=== PATIENT | male | born 1950 | race Caucasian/White ===

== ENCOUNTER 2022-10-26 22:35 | Inpatient (IN) | payer MEDICARE, OTHER, SELFPAY ==
[2022-10-27 11:05] VITALS: BP 167/83; PULSE 81; RESP 17; TEMP 36.9; O2SAT 94
--- NOTE | 2022-10-27 12:05 | W.PM.HP.N ---
Date of service: 10/27/22 Time of Service: 12:05 Assessment and Plan Assessment and plan (1) Gastrointestinal bleeding: Status: Chronic Assessment and plan: We will have a surgical consult for endoscopic procedure evaluation Dark stools but no further hematochezia: Will initiate protonix 40 mg IVP BID Trend H&H shayna AM CBC Monitor for further GIB. (2) Abnormal CT of the abdomen: Status: Acute Assessment and plan: As above (3) DVT prophylaxis: Status: Acute Assessment and plan: Patient is not a candidate for pharmacological DVT prophylaxis at this time We will start SCD's Consider TEDS (4) Discharge planning issues: Status: Acute Assessment and plan: Pt is a transfer from [facility] Care management will evaluate needs for discharge when patient is medically stable Discussed with Dr. Crowell History of Present Illness History of Present Illness Chief Complaint: Urge to defecate and bloody stools0 Consults Consult date: 10/27/22 Requesting physician: Keith Anne Narrative: This 72 yo male with history of COPD, was transferred from after presenting to their ED on 10/26/2022 with c/o bloody stools X 3 days and urge to defecate. He reported having had hematochezia for the past 3 days with increased in quantity, the last one being on 10/26/2022, yesterday and it was black; no abdominal pain reported. During those episodes, he reported dizziness lasting about 30 seconds and resolving spontaneously He denies hematochezia, nausea, vomiting or a feeling of gastric fullness today. During his stay in the ED at [facility], his H&H dropped from 10.6 & 33.9 to 10.1 & 32, his renal status was as follow, BUN and Creatinine 18 & 0.84 , GFR >60. A CTA of the abdomen resulted in positive findings of focal area of colonic thickening in the region of the hepatic fixture without the exclusion of mass, colonic diverticulosis with multiple diverticula in the distal descending and proximal sigmoid colon.CTA recommeded direct visualization for colonic findings. The patient was accepted as an inpatient transfer from the [facility] ED by Dr. Bennett on 08/26/2023 late evening. Review of Systems Constitutional Constitutional: Denies body ache(s), Reports chills, Reports fatigue and Denies headache(s) Eyes Eyes: Denies blurry vision, Denies change in vision and Denies floaters ENT Ears, Nose, Mouth, and Throat: Denies dysphagia, Denies vertigo, Denies dizziness, Denies headache(s) and Denies tinnitus Cardiovascular Cardiovascular: Denies chest pain, Denies syncope (felt faint a few seconds when passing blood yesterday anf the day before ), Denies lightheadedness and Reports dyspnea on exertion Respiratory Respiratory: Denies cough, Denies hemoptysis and Reports dyspnea on exertion Gastrointestinal Gastrointestinal: Reports melena, Reports hematochezia, Reports tenesmus, Denies constipation, Denies dysphagia, Reports fecal incontinence and Denies nausea Genitourinary Genitourinary: Denies hematuria and Denies difficulty urinating Musculoskeletal Musculoskeletal: Reports arthralgias (right hip 0.5/10 due to fall in 1999 and bursitis), Denies muscle cramps and Denies muscle weakness Integumentary/Breasts Skin/Breast: Denies bleeding lesions, Denies lesions and Reports rash (intermittent rash to right and left shoulders) Neurologic Neurologic: Denies vertigo, Denies dizziness, Denies syncope (felt faint a few seconds when passing blood yesterday anf the day before ) and Denies headache(s) Psychiatric Psychiatric: Denies change in appetite Endocrine Endocrine: Reports cold intolerance (cold hands) and Reports fatigue Hematologic/Lymphatic Hematologic/Lymphatic: Denies lymphadenopathy PFSH All Active Problems (Updated 10/27/22 @ 14:06 by Natalie Crowell MD) Abnormal CT of the abdomen (Acute) Discharge planning issues (Acute) DVT prophylaxis (Acute) Macrocytic anemia (Acute) Gastrointestinal bleeding (Chronic) COPD (chronic obstructive pulmonary disease) (Chronic) Medical History (Updated 10/27/22 @ 14:06 by Natalie Crowell MD) Broken foot Hypertension Osteomyelitis Requiring I&D/washout Surgical History (Updated 10/27/22 @ 13:47 by Natalie Crowell MD) H/O foot surgery Family History (Updated 10/27/22 @ 13:51 by Natalie Crowell MD) Maternal Grandmother Heart disease Cancer lung Mother Congestive heart failure Maternal Grandfather Stroke Father Cancer prostate Paternal Grandfather Cancer colon Social History (Updated 10/27/22 @ 13:52 by Natalie Crowell MD) Smoking/Tobacco Use Status: Former Tobacco Use Quit Date: 06/02/97 Pack-years: 40 Tobacco: How many years used: 20 Smoking risk assessment performed?: Yes Alcohol Intake: current Alcohol Intake frequency: 0-2 drinks per day Alcohol type: beer and hard liquor Counseling given: Yes Counseling provided: provider counseling Drug use: Never Substance use type: does not use Details: Last Drink about a week and a half ago 10/27/22 CJ Do you feel safe at home: Yes Do you feel safe in your relationship?: Yes Meds Allergies and Home Medications Allergies Allergy/AdvReac Type Severity Reaction Status Date / Time Penicillins Allergy Swelling/Ed Verified 10/27/22 19:26 tim Home Medications Medication Instructions Recorded Confirmed Type acetaminophen 500 mg tablet 1,000 mg PO Q6H PRN 10/27/22 10/27/22 History aspirin 325 mg tablet 325 mg PO DAILY 10/27/22 10/27/22 History cholecalciferol (vitamin D3) 25 1,000 unit PO DAILY 10/27/22 10/27/22 History mcg (1,000 unit) capsule (Vitamin D3) garlic 500 mg capsule 500 mg PO DAILY 10/27/22 10/27/22 History magnesium oxide 400 mg PO DAILY 10/27/22 10/27/22 History asvucsxa-orj-wkobj acid 300 1 tab PO DAILY 10/27/22 10/27/22 History mcg-lycopene 600 mcg-lutein 300 mcg tablet (Centrum Silver Ultra Men's) naproxen 250 mg tablet 250 mg PO Q8H PRN 10/27/22 10/27/22 History omega-3 fatty acids-fish oil 684 1 cap PO DAILY 10/27/22 10/27/22 History mg-1,200 mg capsule,delayed release selenium 50 mcg tablet 50 mcg PO DAILY 10/27/22 10/27/22 History Exam Narrative Exam Narrative: Constitutional:Patient is pleasant and cooperative, speaks in full sentences, no distress HEENT: normocephalic, atraumatic, facial features are well aligned, no adenopathy Neuro: Alert and oriented X 4, no focal neurological deficit, no ataxia Cardiac: S1, S2, no murmur, pulses are positive to all 4 extremities, no edema, cap refill to fingers> 3 seconds Resp: Lung are clear and diminished GI: Abdomen is soft, non-tender, slightly bloated : Musk:push pull 5/5 to upper and lower extremities Skin: skin is warm pink and intact but hands are cold Psych: Congruent Results Imaging Abdomen CT scan report/results: report reviewed (bilat renal calculi, cholelithiasis without evidence of cholecystitis, bladder diverticula suggestive of outlet obstruction, prostate enlargement, bilat. inguinal hernia, small umbilical hernia) and other (CTA of the abdomen resulted in positive findings of focal area of colonic thickening in the region of the hepatic fixture without the exclusion of mass, colonic diverticulosis with multiple diverticula in the distal descending and proximal sigmoid colon) Labs Result diagrams: 10/27/22 13:05 10/27/22 13:05 Last Vital Signs Temp 98.4 F 10/27/22 11:05 Pulse 81 10/27/22 11:05 Resp 17 10/27/22 11:05 BP 167/83 H 10/27/22 11:05 Pulse Ox 94 10/27/22 11:05 PAWSS Pt Consumed Any Amount of Alcohol Within the Last 30 days OR had positive ALENA Upon Admission: Yes Have you Been Recently Intoxicated or Drunk Within the Last 30 days?: No Result: 0 Time Spent Time spent with Patient: 55-74 minutes Time was spent: preparing to see the patient(eg.review tests) and obtaining and/or reviewing [facility]
[2022-10-27] MEDS: Normal Saline 1,000 ML 75 ML IV (12:16)
[2022-10-27] MEDS: Normal Saline Flush 10 ML SYR ×2 (12:17→14:52)
--- NOTE | 2022-10-27 13:09 | HPE_ITS ---
Date of service: 10/27/22 Time of Service: 13:28 Assessment and Plan Assessment and plan (1) Gastrointestinal bleeding: Status: Chronic Assessment and plan: Initially, description fit lower GI hemorrhage; however, stools turned black, suggestive of a possible upper GI bleed source. General surgery consulted. I have added a PPI. The patient has been able to tolerate a diet, which I for now continued as H/H is stable. Suspect he will need both upper and lower endoscopy, but I am not sure he needs these as an inpatient. Will monitor overnight. (2) Abnormal CT of the abdomen: Status: Acute Assessment and plan: Thickening in the region of the hepatic flexure. As above. (3) Macrocytic anemia: Status: Acute Assessment and plan: Check anemia studies. (4) COPD (chronic obstructive pulmonary disease): Status: Chronic Assessment and plan: Not in acute exacerbation. Continue outpatient albuterol inhaler prn. (5) Hypertension: Assessment and plan: Not on therapy at home; BP here elevated. Will monitor off of IVF. If persists, would consider starting an antihypertensive agent. (6) DVT prophylaxis: Status: Acute Assessment and plan: SCDs. Hold chemical DVT ppx in light of GI bleeding (7) Discharge planning issues: Status: Acute Assessment and plan: Full code as discussed with the patient. History of Present Illness History of Present Illness Chief Complaint: bright red blood in stool Narrative: Mr Rueda is a 72 year old male with PMHx of non-oxygen dependent COPD, HTN in the past (not on therapy), past tobacco abuse, who takes aspirin, naproxen, fish oil, garlic, and tumeric supplements, who was transferred from [facility] (due to lack of beds) for gastrointestinal hemorrhage. The patient states that he first noticed LLQ discomfort and bright red blood when wiping with toilet paper 3 days ago. He had beets for dinner and thought maybe that's why he had the blood on wiping. The following day, he saw blood in the toilet bowl (bright red) and, again, blamed the beets. Yesterday, he had another BM with very bright red water in the toilet. He also felt dizzy. He went to the ED at [facility], where it was felt he would benefit from admission at our facility. He was hemodynamically stable and had an H/H from 10.6/33.9. Transporation could not be obtained until today. The patient states that he had dinner last night and tolerated food without issue. He had a BM today which was described as dark/black. He normally has light brown BMs. He states he had a normal colonoscopy in the last 5-10 years. Denies dizziness today, denies CP/SOB/nausea. LLQ discomfort remains. Review of Systems All systems reviewed & are unremarkable except as noted in HPI and below PFSH All Active Problems (Updated 10/27/22 @ 14:06 by Natalie rCowell MD) Abnormal CT of the abdomen (Acute) Discharge planning issues (Acute) DVT prophylaxis (Acute) Macrocytic anemia (Acute) Gastrointestinal bleeding (Chronic) COPD (chronic obstructive pulmonary disease) (Chronic) Medical History (Updated 10/27/22 @ 14:06 by Natalie Crowell MD) Broken foot Hypertension Osteomyelitis Requiring I&D/washout Surgical History (Updated 10/27/22 @ 13:47 by Natalie Crowell MD) H/O foot surgery Family History (Updated 10/27/22 @ 13:51 by Natalie Crowell MD) Maternal Grandmother Heart disease Cancer lung Mother Congestive heart failure Maternal Grandfather Stroke Father Cancer prostate Paternal Grandfather Cancer colon Social History (Updated 10/27/22 @ 13:52 by Natalie Crowell MD) Smoking/Tobacco Use Status: Former Tobacco Use Quit Date: 06/02/97 Pack-years: 40 Tobacco: How many years used: 20 Smoking risk assessment performed?: Yes Alcohol Intake: current Alcohol Intake frequency: 0-2 drinks per day Alcohol type: beer and hard liquor Counseling given: Yes Counseling provided: provider counseling Drug use: Never Substance use type: does not use Details: Last Drink about a week and a half ago 10/27/22 CJ Do you feel safe at home: Yes Do you feel safe in your relationship?: Yes Meds Allergies and Home Medications Allergies Allergy/AdvReac Type Severity Reaction Status Date / Time Penicillins Allergy Unverified 10/27/22 11:29 Home Medications Medication Instructions Recorded Confirmed Type acetaminophen 500 mg tablet 1,000 mg PO Q6H PRN 10/27/22 10/27/22 History aspirin 325 mg tablet 325 mg PO DAILY 10/27/22 10/27/22 History cholecalciferol (vitamin D3) 25 1,000 unit PO DAILY 10/27/22 10/27/22 History mcg (1,000 unit) capsule (Vitamin D3) garlic 500 mg capsule 500 mg PO DAILY 10/27/22 10/27/22 History magnesium oxide 400 mg PO DAILY 10/27/22 10/27/22 History ttougnew-yvr-evteg acid 300 1 tab PO DAILY 10/27/22 10/27/22 History mcg-lycopene 600 mcg-lutein 300 mcg tablet (Centrum Silver Ultra Men's) naproxen 250 mg tablet 250 mg PO Q8H PRN 10/27/22 10/27/22 History omega-3 fatty acids-fish oil 684 1 cap PO DAILY 10/27/22 10/27/22 History mg-1,200 mg capsule,delayed release selenium 50 mcg tablet 50 mcg PO DAILY 10/27/22 10/27/22 History Exam Narrative Exam Narrative: General: Pleasant male who is not pale, sitting up at the edge of the bed, A&Ox3, NAD Neurological: A&Ox3, no focal deficits Psychiatric: Appropriate speech pattern/content Skin: Visible skin intact HEENT: Atraumatic, normocephalic, EOMI, MMM, clear oropharynx, no submandibular or cervical lymphadenopathy, no goiter or JVD Cardiovascular: RRR, no m/r/g Lungs: CTAB Gastrointestinal: soft, tender in LLQ Genitourinary: deferred Extremities: +1 BLE edema, +1 pedal pulses B, no c/c Results Labs Result diagrams: 10/27/22 13:05 10/27/22 13:05 Labs: [facility]: WBC 9.4, H/H 10.6/33.9, plt of 287 Chemistry: Sodium of 140, K 4.0, Chloride 102, Bicarb 27, BUN 18, Cr 0.84, Glucose of [address] ST 15 ALT 9 Alk phos 89 Albumin 4.3 Lipase 32 LA 1.3 Trop T 5th generation 9.23 (nml 0-22 ng/L) -> 9.0. Repeat H/H 10.1/32.0 COVID-19 PCR/influenza negative/negative. CT angio Abdomen/pelvis: 1. No evidence of active GI bleeding 2. Extensive diverticulosis w/o evidence of acute diverticulitis. 3. Focal segment of colonic wall thickening in the region of hepatic flexure, cannot exclude a mass. Recommend direct visualization for further evaluation. 4. Bilateral nonobstructing renal calculi. 5. Probable cholelithiasis without evidence of cholecystitis. Last Vital Signs Temp 36.9 C 10/27/22 11:05 Pulse 81 10/27/22 11:05 Resp 17 10/27/22 11:05 BP 167/83 H 10/27/22 11:05 Pulse Ox 94 10/27/22 11:05 Time Spent Time spent with Patient: 40-54 minutes Time was spent: preparing to see the patient(eg.review tests), obtaining and/or reviewing separately otained hiistory, ordering medications,tests, procedures, referring, communicating with other health care administrative tech, indepentently interpreting results, counseling the patient and care coordination
[2022-10-27 13:13] LABS: HCT 30.6 % (40.0-50.0); MCH 31.2 pg (27.0-33.0); MCHC 32.7 % (32.0-36.0); MCV 95 fL (80-95); MPV 9.2 fL (8.0-11.0); Platelet Count 246 10^3/uL (130-400); RBC 3.21 10^6/uL (4.36-5.78); RDW 12.7 % (11.8-14.1); WBC 8.33 10^3/uL (4.4-10.8)
[2022-10-27 13:27] LABS: Anion Gap 8.5 mmol/L (3-11); BUN 16 mg/dL (7-18); CO2 27.5 mmol/L (21.0-32.0); CREATININE 0.8 mg/dL (0.70-1.30); Chloride 105 mmol/L (98-107); Estimated GFR 94.03 (mL/min/1.73m2); Glucose 99 mg/dL (74-106); Magnesium 1.9 mg/dL (1.8-2.4); Potassium 3.8 mmol/L (3.5-5.1); Sodium 141 mmol/L (136-145)
[2022-10-27 13:29] LABS: INR 1.1 (0.9-1.1); Prothrombin Time 10.6 sec (9.3-11.0)
[2022-10-27] MEDS: Pantoprazole 40 MG VIAL IVP (14:51)
[2022-10-27 15:00] VITALS: PULSE 89
--- NOTE | 2022-10-27 15:14 | W.SURGCON ---
Date of service: 10/27/22 Time of Service: 15:14 Assessment and Plan Assessment and plan (1) Gastrointestinal bleeding: Status: Acute Assessment and plan: This is a 72-year-old male who presented to an outside hospital with a 3-day history of rectal bleeding. He only had one bloody bowel movement a day, and today had a black stool. Based on the reported H/H at [facility], repeat at [facility], and decrease in bright lood, I doubt that the patient is still bleeding. He likely had a diverticular bleed, but there is concern of thickening of the colon at the hepatic flexure. Furthermore, given a black stool this mornng and lack of a PPI/H2 archana on aspirin and an NSAID, there is the possibility of an upper source. --oral diet ---recommend elective EGD/colo as an outpatient, as long as he remains stable Pt discussed with Dr. Crowell, Hospitalist History of Present Illness History of Present Illness Chief Complaint: rectal bleeding Narrative: Mr Rueda is a 72 year old male with PMHx of non-oxygen dependent COPD, HTN in the past (not on therapy), past tobacco abuse, who takes aspirin, naproxen, fish oil, garlic, and tumeric supplements, who was transferred from [facility] (due to lack of beds) for gastrointestinal bleeding. Starting on 10/24, he had his normal single bowel movement per day but noticed some bleedine when wiping. He also has had some LLQ discomfort, which he denies having previously. Yesterday, he had another BM with very bright red water in the toilet. He also felt dizzy. He went to the ED at [facility], where it was felt he would benefit from admission at our facility. He was hemodynamically stable and had an H/H from 10.6/33.9. Transporation could not be obtained until today. The patient states that he had dinner last night and tolerated food without issue. He had a BM today which was described as dark/black. He normally has light brown BMs. He states he had a normal colonoscopy in the last 5-10 years. Denies dizziness today, denies CP/SOB/nausea. The patient endorses having occasional heartburn/GERD symptoms which he treats with seltzer water. He is not on a PPI/H2 archana, and takes aspirin daily, and naproxen 2-4 days/week.He has never had an EGD. He denies ever having diverticulitis, or previous bleeding. He denies fever/chills, nausea/vomiting, or change in appetite. Review of Systems Narrative: A 10-point ROS was conducted, pertinent findings above. PFSH All Active Problems (Updated 10/27/22 @ 21:38 by Keith Anne MD) Abnormal CT of the abdomen (Acute) Discharge planning issues (Acute) DVT prophylaxis (Acute) Macrocytic anemia (Acute) Gastrointestinal bleeding (Acute) COPD (chronic obstructive pulmonary disease) (Chronic) Medical History (Updated 10/27/22 @ 21:38 by Keith Anne MD) Broken foot Hypertension Osteomyelitis Requiring I&D/washout Surgical History (Updated 10/27/22 @ 13:47 by Natalie Crowell MD) H/O foot surgery Family History (Updated 10/27/22 @ 13:51 by Natalie Crowell MD) Maternal Grandmother Heart disease Cancer lung Mother Congestive heart failure Maternal Grandfather Stroke Father Cancer prostate Paternal Grandfather Cancer colon Social History (Updated 10/27/22 @ 13:52 by Natalie Crowell MD) Smoking/Tobacco Use Status: Former Tobacco Use Quit Date: 06/02/97 Pack-years: 40 Tobacco: How many years used: 20 Smoking risk assessment performed?: Yes Alcohol Intake: current Alcohol Intake frequency: 0-2 drinks per day Alcohol type: beer and hard liquor Counseling given: Yes Counseling provided: provider counseling Drug use: Never Substance use type: does not use Details: Last Drink about a week and a half ago 10/27/22 Do you feel safe at home: Yes Do you feel safe in your relationship?: Yes Exam Const General: cooperative, healthy appearing, comfortable, no acute distress, well developed and well groomed Nutritional Appearance: average body habitus and well nourished Orientation: alert, awake and oriented x3 Neck Neck: normal visual inspection, trachea midline and nontender Resp Effort & Inspection: normal respiratory effort and able to speak in complete sentences GI Inspection: normal to inspection and non-distended Palpation: soft and tender (focal LLQ tenderness, no guarding, no rebound) Back/Spine/Pelvis Back: no CVA tenderness and No back tenderness Neuro Cognition: normal cognition Speech: speech normal Extrem Other: no Lower extrenmity cellulitis, edema Psych Thought Process: normal Thought Content: normal Insight: insight good Judgment: judgment good Results Last Vital Signs Temp 98.4 F 10/27/22 11:05 Pulse 81 10/27/22 11:05 Resp 17 10/27/22 11:05 BP 167/83 H 10/27/22 11:05 Pulse Ox 94 10/27/22 11:05 Labs Result diagrams: 10/27/22 13:05 10/27/22 13:05 Labs: Laboratory Results - last 24 hr 10/27/22 10/27/22 10/27/22 13:05 13:05 13:05 WBC 8.33 RBC 3.21 L Hgb 10.0 L Hct 30.6 L MCV 95 MCH 31.2 MCHC 32.7 RDW 12.7 Plt Count 246 MPV 9.2 PT 10.6 INR 1.1 Sodium 141 Potassium 3.8 Chloride 105 Carbon Dioxide 27.5 Anion Gap 8.5 BUN 16 Creatinine 0.8 Est GFR (CKD-EPI 2020) 94.03 Glucose 99 Calcium 9.0 Magnesium 1.9 Patient ABO/Rh Antibody Screen 10/27/22 13:05 WBC RBC Hgb Hct MCV MCH MCHC RDW Plt Count MPV PT INR Sodium Potassium Chloride Carbon Dioxide Anion Gap BUN Creatinine Est GFR (CKD-EPI 2020) Glucose Calcium Magnesium Patient ABO/Rh O Positive Antibody Screen NEGATIVE Imaging Imaging Studies: CT angio Abdomen/pelvis (10/26/2022) ([facility]): 1. No evidence of active GI bleeding 2. Extensive diverticulosis w/o evidence of acute diverticulitis. 3. Focal segment of colonic wall thickening in the region of hepatic flexure, cannot exclude a mass. Recommend direct visualization for further evaluation. 4. Bilateral nonobstructing renal calculi. 5. Probable cholelithiasis without evidence of cholecystitis.
[2022-10-27 15:48] VITALS: BP 110/66; PULSE 77; RESP 14; TEMP 36.9; O2SAT 96
[2022-10-27 19:32] VITALS: BP 136/76; PULSE 81; RESP 18; TEMP 37; O2SAT 95
[2022-10-27 23:09] VITALS: PULSE 67
[2022-10-27 23:41] VITALS: BP 103/58; PULSE 73; RESP 16; TEMP 36.3; O2SAT 95
[2022-10-28] VITALS (8 sets, daily range): BP systolic 109–157; BP diastolic 61–78; PULSE 64–80; RESP 14–20; TEMP 36.9–37.4; O2SAT 93–96
[2022-10-28] MEDS: Normal Saline Flush 10 ML SYR IVP ×3 (02:44→23:15)
[2022-10-28] MEDS: Pantoprazole 40 MG VIAL IVP ×3 (02:45→23:15)
[2022-10-28 06:20] LABS: Abs Immature Grans 0.03 10^3/uL (0.0-0.06); Absolute Basophil Count 0.01 10^3/uL (0.0-0.2); Absolute Eosinophil Count 0.15 10^3/uL (0.0-0.7); Absolute Lymphocyte Count 1.12 10^3/uL (1.2-3.4); Absolute Monocyte Count 0.45 10^3/uL (0.1-0.8); Absolute Neutrophil Count 4.65 10^3/uL (1.2-6.7); Basophils % 0.2; Eosinophils % 2.3; HCT 27.7 % (40.0-50.0); HGB 8.8 g/dL (13.5-17.5); Immature Grans % 0.5; Lymphocytes % 17.5; MCH 30.6 pg (27.0-33.0); MCHC 31.8 % (32.0-36.0); MCV 96 fL (80-95); MPV 9.5 fL (8.0-11.0); Neutrophils % 72.5; Platelet Count 230 10^3/uL (130-400); RBC 2.88 10^6/uL (4.36-5.78); RDW 12.9 % (11.8-14.1); RDW-SD 45.5 fL; WBC 6.41 10^3/uL (4.4-10.8)
[2022-10-28 06:38] LABS: Iron 29 ug/dL (65-175); Total Iron Binding Capacity 275 ug/dL (250-450); Transferrin Sat 11 % (20-55)
[2022-10-28 06:49] LABS: Anion Gap 4.5 mmol/L (3-11); BUN 16 mg/dL (7-18); CO2 28.5 mmol/L (21.0-32.0); CREATININE 0.8 mg/dL (0.70-1.30); Calcium 8.5 mg/dL (8.5-10.1); Chloride 107 mmol/L (98-107); Estimated GFR 94.03 (mL/min/1.73m2); Ferritin 24 ng/mL (26-388); Glucose 94 mg/dL (74-106); Magnesium 1.9 mg/dL (1.8-2.4); Potassium 3.7 mmol/L (3.5-5.1); Sodium 140 mmol/L (136-145)
[2022-10-28 07:03] LABS: Folate 18.2 ng/mL (8.6-20.0); Vitamin B12 269 pg/mL (193-986)
[2022-10-28] MEDS: Magnesium Oxide 400 MG TAB PO (07:47)
[2022-10-28] MEDS: Cholecalciferol (Vitamin D3) 1,000 UNIT TAB 1000 UNITS PO (07:47)
[2022-10-28] MEDS: Multivitamin w/Minerals TAB 1 TAB PO (07:47)
--- NOTE | 2022-10-28 08:45 | PGE_ITS ---
Date of Service Date of service: 10/28/22 Time of Service: 08:45 Assessment and Plan Assessment and plan (1) Gastrointestinal bleeding: Status: Acute Assessment and plan: ?Gastrointestinal bleeding: ?Status:?Chronic ? ? ? Assessment and plan: Seen by surgery on 10/27/2022: Recommendations were oral diet recommend elective EGD/colo as an outpatient, as long as he remains stable We will follow up with surgery as patient had another brown-reddish episode and a drop in H&H from 10.0/30.6 to 8.8/27.7 We will continue IV protonix 40 mg IVP BID, there is no evidence that a PPI infusion would be better Trend? H&H with this PM CBC and AM CBC Monitor for further GIB. Repeated shows a H&H: 10.0 & 30.9 If the patient remains stable , surgical plan previously mentioned will be implemented with prospective discharge in AM (2) Abnormal CT of the abdomen: Status: Acute Assessment and plan: Abnormal CT of the abdomen: ?Status:?Acute ? ? ? Assessment and plan:Seen by Surgery on 10/27/2022, ongoing consultation in effect As above (3) DVT prophylaxis: Status: Deleted Assessment and plan: DVT prophylaxis: ?Status:?Acute ? ? ? Assessment and plan: Patient is not a candidate for pharmacological DVT prophylaxis at this time We will continue SCD's Consider TEDS (4) Macrocytic anemia: Status: Acute Assessment and plan: MCV 96, Fe 29, TIBC 275, transfering 11%, ferritin 24 Considering iron supplementation inpatient and at discharge B12 supplementation as the level was 296 (5) COPD (chronic obstructive pulmonary disease): Status: Chronic Assessment and plan: Patient is in no acute distress, bibasilar decreased breath sounds Patient will start IS (6) Discharge planning issues: Status: Deleted Assessment and plan: Discharge planning issues: ?Status:?Acute ? ? ? Assessment and plan: Pt is a transfer from [facility] Care management will evaluate needs for discharge when patient is medically stable Patient reports not having a PCP but is willing to find a provider: Information printed by care management and given to patient He would also like is discharge drug to be sent to the [facility] in [place], [place] Discussed with Dr. Crowell Subjective Subjective Interval history since last seen: Patient reports one episode of reddish-brown stool overnight with tenesmus. He denies having dizziness during this episode but reports abdominal cramping 1/10 since then; denies needing pain medicine. He report floaters to left eye that have been presents over the past 2 years but not new visual changes; denies paresthesias, chest pain, palpitation, shortness of breath or difficulty breathing, dysphagia, nausea, anorexia, hematochezia, dysuria. Reports voiding yellow clear urine. He states that he wants to find what is going on. Exam Narrative Exam Narrative: Constitutional:Patient is pleasant and cooperative, speaks in full sentences, no distress HEENT: normocephalic, atraumatic, facial features are well aligned, no adenopathy Neuro: Alert and oriented X 4, no focal neurological deficit.Steady gait. Cardiac: S1, S2, no murmur, pulses are positive to all 4 extremities, no edema, cap refill to fingers< 3 seconds Resp: Lung are clear and diminished GI: Abdomen is soft, non-tender, slightly bloated :No CVA tenderness Musk:push pull 5/5 to upper and lower extremities Skin: skin is warm pink and intact Psych: Congruent Objective Last Vital Signs Temp 98.4 F 10/28/22 07:45 Pulse 76 10/28/22 07:45 Resp 20 10/28/22 07:45 BP 124/66 10/28/22 07:45 Pulse Ox 95 10/28/22 07:45 Laboratory Results - last 24 hr 10/27/22 10/27/22 10/27/22 13:05 13:05 13:05 WBC 8.33 RBC 3.21 L Hgb 10.0 L Hct 30.6 L MCV 95 MCH 31.2 MCHC 32.7 RDW 12.7 Plt Count 246 MPV 9.2 Immature Gran % Neutrophils % Lymphocytes % Monocytes % Eosinophils % Basophils % Nucleated RBC % Absolute Neutrophils Absolute Lymphocytes Absolute Monocytes Absolute Eosinophils Absolute Basophils PT 10.6 INR 1.1 Sodium 141 Potassium 3.8 Chloride 105 Carbon Dioxide 27.5 Anion Gap 8.5 BUN 16 Creatinine 0.8 Est GFR (CKD-EPI 2020) 94.03 Glucose 99 Calcium 9.0 Magnesium 1.9 Iron TIBC Transferrin % Sat Ferritin Vitamin B12 Folate Patient ABO/Rh Antibody Screen 10/27/22 10/28/22 10/28/22 13:05 05:45 05:45 WBC 6.41 RBC 2.88 L Hgb 8.8 L Hct 27.7 L MCV 96 H MCH 30.6 MCHC 31.8 L RDW 12.9 Plt Count 230 MPV 9.5 Immature Gran % 0.5 Neutrophils % 72.5 Lymphocytes % 17.5 Monocytes % 7.0 Eosinophils % 2.3 Basophils % 0.2 Nucleated RBC % 0.0 Absolute Neutrophils 4.65 Absolute Lymphocytes 1.12 L Absolute Monocytes 0.45 Absolute Eosinophils 0.15 Absolute Basophils 0.01 PT INR Sodium 140 Potassium 3.7 Chloride 107 Carbon Dioxide 28.5 Anion Gap 4.5 BUN 16 Creatinine 0.8 Est GFR (CKD-EPI 2020) 94.03 Glucose 94 Calcium 8.5 Magnesium 1.9 Iron TIBC Transferrin % Sat Ferritin 24 L Vitamin B12 Folate Patient ABO/Rh O Positive Antibody Screen NEGATIVE 10/28/22 10/28/22 05:45 05:45 WBC RBC Hgb Hct MCV MCH MCHC RDW Plt Count MPV Immature Gran % Neutrophils % Lymphocytes % Monocytes % Eosinophils % Basophils % Nucleated RBC % Absolute Neutrophils Absolute Lymphocytes Absolute Monocytes Absolute Eosinophils Absolute Basophils PT INR Sodium Potassium Chloride Carbon Dioxide Anion Gap BUN Creatinine Est GFR (CKD-EPI 2020) Glucose Calcium Magnesium Iron 29 L TIBC 275 Transferrin % Sat 11 L Ferritin Vitamin B12 269 Folate 18.2 Patient ABO/Rh Antibody Screen PAWSS Pt Consumed Any Amount of Alcohol Within the Last 30 days OR had positive ALENA Upon Admission: Yes Have you Been Recently Intoxicated or Drunk Within the Last 30 days?: No Result: 0 Time Spent with Patient Time Spent with Patient: >50 minutes Time was spent: preparing to see the patient(eg.review tests) and obtaining and/or [facility]
[2022-10-28] MEDS: Cyanocobalamin 1000 MCG/ML VIAL IM/SC (09:18)
[2022-10-28] MEDS: IRON SUCROSE COMPLEX 200 MG in Normal Saline 100 ML 400 MG IVPB (11:03)
[2022-10-28 14:20] LABS: HCT 30.9 % (40.0-50.0)
--- NOTE | 2022-10-28 16:36 | PDOC.CMIN ---
- If Service Date Differs Date of service: 10/28/22 Time of Service: 16:36 Care Management Initial Assess REASON FOR HOSPITALIZATION:: Lower GI bleed PAST MEDICAL HISTORY/PAST SURGICAL HISTORY:: Abnormal CT of the abdomen (Acute). Discharge planning issues (Acute). DVT prophylaxis (Acute). Macrocytic anemia (Acute). Gastrointestinal bleeding (Chronic). COPD (chronic obstructive pulmonary disease) (Chronic). Medical History (Updated 10/27/22 @ 14:06 by Natalie Crowell MD). Broken foot. Hypertension. Osteomyelitis. Requiring I&D/washout. Surgical History (Updated 10/27/22 @ 13:47 by Natalie Crowell MD). H/O foot surgery PREVIOUS FUNCTIONAL STATUS/SOCIAL/FAMILY SUPPORTS:: Resides in [place], [place], son Javid is primary supporter. Independent at baseline in the community. CURRENT FUNCTIONAL STATUS:: Remains inpatient, up independently, good oral intake. ADVANCE DIRECTIVES:: None on file. Has patient been provided with info about the portal/API?: No Did the patient sign up for the portal?: No CODE STATUS:: Full Code INSURANCE COVERAGE / FINANCIAL ISSUES:: [employer] Medicare A&B PRIMARY CARE PHYSICIAN:: Resources provided. POTENTIAL DISCHARGE NEEDS:: Follow up appointments. PATIENT/FAMILY EDUCATION NEEDS:: Review discharge instructions, discuss Ask Me Three. ANTICIPATED BARRIERS TO DISCHARGE:: None identified. TRANSPORTATION:: Via private vehicle with family. PLAN:: Jose F presented from [facility] in [place], [place]. He will return home to follow up in his own community. He will transport via private vehicle with family.
--- NOTE | 2022-10-28 17:08 | PHA.REVIEW2 ---
Pharmacy Admission Review - Admission Clinical Review (Last Updated 10/27/22 @ 13:47 by Natalie Crowell MD) Discharge planning issues (Acute) Abnormal CT of the abdomen (Acute) Discharge planning issues (Acute) DVT prophylaxis (Acute) Macrocytic anemia (Acute) Gastrointestinal bleeding (Acute) Penicillins Allergy (Verified 10/27/22 19:26) Swelling/Edema Resuscitation Status Full Code Height 6 ft 1 in Weight 102.1 kg - Renal Dosing Renal Dosing: BUN 16 mg/dL (7-18) 10/28/22 05:45 Creatinine 0.8 mg/dL (0.70-1.30) 10/28/22 05:45 Medications needing adjustments: Reviewed (Crcl ~83.8 mL/min current meds okay) - Anticoagulation Anticoagulation: Hgb 10.0 g/dL (13.5-17.5) L 10/28/22 14:10 Hct 30.9 % (40.0-50.0) L 10/28/22 14:10 Plt Count 230 10^3/uL (130-400) 10/28/22 05:45 INR 1.1 (0.9-1.1) 10/27/22 13:05 Creatinine 0.8 mg/dL (0.70-1.30) 10/28/22 05:45 DVT Prophylaxis: Reviewed (SCDs ordered, chemical prophylaxis held due to GI bleed per H&P) Therapeutic Anticoagulation: N/A - Opiate Usage Evaluate Pain Scale/Pains Meds: N/A - Relevant Labs Sodium 140 mmol/L (136-145) 10/28/22 05:45 Potassium 3.7 mmol/L (3.5-5.1) 10/28/22 05:45 Chloride 107 mmol/L (98-107) 10/28/22 05:45 Magnesium 1.9 mg/dL (1.8-2.4) 10/28/22 05:45 Electrolytes, C-Reactive P, ESR: Reviewed - DM Control DM Control: Glucose 94 mg/dL (74-106) 10/28/22 05:45 DM Control: Reviewed (No DM noted in pt's medical history, no A1c on file) - Cardiac Review BP, HR, EF%: Reviewed (BP has been up and down some, HR has been within normal limits so far) - Qtc Review QTc: N/A - IV to PO Switch IV Medications: Reviewed - Home Meds Home Med List reviewed: Reviewed Relevent Home Meds Not ordered & why?: aspirin (GI bleed), garlic, naproxen (GI bleed/PRN), omega-3, selenium - Current meds Current Medication Order Review: Reviewed - Comments Comments/Follow Ups: Watch VS, H/H, labs and for med changes.
--- NOTE | 2022-10-28 20:05 | W.PM.PROGNOT ---
Date of Service Date of service: 10/28/22 Time of Service: 17:45 Assessment and Plan Assessment and plan (1) Gastrointestinal bleeding: Status: Acute Assessment and plan: Initially, description fit lower GI hemorrhage; however, stools turned black, suggestive of a possible upper GI bleed source. The stool does appear to be due to a lower GI bleed. H/H is slightly lower on this am's labs, but better on this afternoon's. Not requiring transfusion. Continue a diet. Plan for outpatient upper and lower endoscopy. Appreciate surgical recommendations. (2) Abnormal CT of the abdomen: Status: Acute Assessment and plan: Thickening in the region of the hepatic flexure. As above. (3) Macrocytic anemia: Status: Acute Assessment and plan: Replete iron and B12. (4) COPD (chronic obstructive pulmonary disease): Status: Chronic Assessment and plan: Not in acute exacerbation. Continue outpatient albuterol inhaler prn. (5) Hypertension: Assessment and plan: BP better off of IVF. Will not start antihypertensives at this time. (6) DVT prophylaxis: Status: Acute Assessment and plan: SCDs. Hold chemical DVT ppx in light of GI bleeding (7) Discharge planning issues: Status: Acute Assessment and plan: Full code as discussed with the patient. Possible discharge home tomorrow. Subjective Subjective Interval history since last seen: Did have another bloody BM last night and this afternoon. Still has some LLQ discomfort, and it is worse right before a BM. Denied dizziness, chest pain, shortness of breath, nausea. Exam Narrative Exam Narrative: General: Pleasant male who is not pale, sitting up at the edge of the bed, A&Ox3, NAD, playing cribbage HEENT: EOMI, MMM Cardiovascular: RRR, no m/r/g Lungs: CTAB Gastrointestinal: soft, tender in LLQ Extremities: +1 BLE edema, +1 pedal pulses B, no c/c Objective Last Vital Signs Temp 37.4 C 10/28/22 19:20 Pulse 70 10/28/22 19:20 Resp 16 10/28/22 19:20 BP 128/76 10/28/22 19:20 Pulse Ox 93 10/28/22 19:20 Laboratory Results - last 24 hr 10/28/22 10/28/22 10/28/22 05:45 05:45 05:45 WBC 6.41 RBC 2.88 L Hgb 8.8 L Hct 27.7 L MCV 96 H MCH 30.6 MCHC 31.8 L RDW 12.9 Plt Count 230 MPV 9.5 Immature Gran % 0.5 Neutrophils % 72.5 Lymphocytes % 17.5 Monocytes % 7.0 Eosinophils % 2.3 Basophils % 0.2 Nucleated RBC % 0.0 Absolute Neutrophils 4.65 Absolute Lymphocytes 1.12 L Absolute Monocytes 0.45 Absolute Eosinophils 0.15 Absolute Basophils 0.01 Sodium 140 Potassium 3.7 Chloride 107 Carbon Dioxide 28.5 Anion Gap 4.5 BUN 16 Creatinine 0.8 Est GFR (CKD-EPI 2020) 94.03 Glucose 94 Calcium 8.5 Magnesium 1.9 Iron 29 L TIBC 275 Transferrin % Sat 11 L Ferritin 24 L Vitamin B12 Folate 10/28/22 10/28/22 05:45 14:10 WBC RBC Hgb 10.0 L Hct 30.9 L MCV MCH MCHC RDW Plt Count MPV Immature Gran % Neutrophils % Lymphocytes % Monocytes % Eosinophils % Basophils % Nucleated RBC % Absolute Neutrophils Absolute Lymphocytes Absolute Monocytes Absolute Eosinophils Absolute Basophils Sodium Potassium Chloride Carbon Dioxide Anion Gap BUN Creatinine Est GFR (CKD-EPI 2020) Glucose Calcium Magnesium Iron TIBC Transferrin % Sat Ferritin Vitamin B12 269 Folate 18.2 PAWSS Pt Consumed Any Amount of Alcohol Within the Last 30 days OR had positive ALENA Upon Admission: Yes Have you Been Recently Intoxicated or Drunk Within the Last 30 days?: No Result: 0 Time Spent with Patient Time Spent with Patient: 25-34 minutes Time was spent: preparing to see the patient(eg.review tests), obtaining and/or reviewing separately [facility], ordering medications,tests, procedures, referring, communicating with other health before and after school daycare worker, indepentently interpreting results, counseling the patient and care coordination
[2022-10-29] VITALS: PULSE 60
[2022-10-29 06:14] LABS: Abs Immature Grans 0.02 10^3/uL (0.0-0.06); Absolute Basophil Count 0.02 10^3/uL (0.0-0.2); Absolute Eosinophil Count 0.21 10^3/uL (0.0-0.7); Absolute Lymphocyte Count 1.07 10^3/uL (1.2-3.4); Absolute Monocyte Count 0.49 10^3/uL (0.1-0.8); Absolute Neutrophil Count 4.74 10^3/uL (1.2-6.7); Basophils % 0.3; Eosinophils % 3.2; HCT 28.5 % (40.0-50.0); Immature Grans % 0.3; Lymphocytes % 16.3; MCH 30.3 pg (27.0-33.0); MCHC 31.6 % (32.0-36.0); MCV 96 fL (80-95); MPV 9.4 fL (8.0-11.0); Monocytes % 7.5; Neutrophils % 72.4; Platelet Count 230 10^3/uL (130-400); RBC 2.97 10^6/uL (4.36-5.78); RDW 12.7 % (11.8-14.1); RDW-SD 44.4 fL; WBC 6.55 10^3/uL (4.4-10.8)
[2022-10-29 06:36] LABS: Anion Gap 5.3 mmol/L (3-11); BUN 15 mg/dL (7-18); CO2 29.7 mmol/L (21.0-32.0); CREATININE 0.8 mg/dL (0.70-1.30); Calcium 8.6 mg/dL (8.5-10.1); Chloride 107 mmol/L (98-107); Estimated GFR 94.03 (mL/min/1.73m2); Glucose 99 mg/dL (74-106); Magnesium 1.9 mg/dL (1.8-2.4); Potassium 3.8 mmol/L (3.5-5.1); Sodium 142 mmol/L (136-145)
[2022-10-29 07:00] VITALS: BP 107/77; PULSE 88; RESP 18; TEMP 37; O2SAT 94
[2022-10-29] MEDS: Magnesium Oxide 400 MG TAB PO (07:31)
[2022-10-29] MEDS: Cholecalciferol (Vitamin D3) 1,000 UNIT TAB 1000 UNITS PO (07:31)
[2022-10-29] MEDS: Multivitamin w/Minerals TAB 1 TAB PO (07:31)
[2022-10-29 08:00] VITALS: PULSE 83
[2022-10-29] MEDS: Cyanocobalamin 500 MCG TAB 1000 MCG PO (08:00)
[2022-10-29 11:11] VITALS: BP 124/73; PULSE 69; RESP 17; TEMP 37.2; O2SAT 94
--- NOTE | 2022-10-29 11:27 | PGE_ITS ---
Date of Service Date of service: 10/29/22 Time of Service: 11:28 Assessment and Plan Assessment and plan (1) Gastrointestinal bleeding: Status: Acute Assessment and plan: ?Gastrointestinal bleeding: ?Status:?Chronic ? ? ? Assessment and plan: Surgery consult in progress: Recommendations were oral diet recommend elective EGD/colo as an outpatient, as long as he remains stable H&H from 10.0/30.6 to 8.8/27.7 We will continue IV protonix 40 mg IVP BID, there is no evidence that a PPI infusion would be better Trend? H&H with this PM CBC and AM CBC Monitor for further GIB. Repeated shows a H&H on 10/28/2022: 10.0 & 30.9 and on 10/29/2022 H&H was , 9.0 &28.5 in AM. If the patient's H&H remains stable , surgical plan previously mentioned will be implemented with prospective discharge in PM (2) Abnormal CT of the abdomen: Status: Acute Assessment and plan: Abnormal CT of the abdomen: ?Status:?Acute ? ? ? Assessment and plan:Seen by Surgery on 10/28/2022, ongoing consultation in effect As above (3) DVT prophylaxis: Status: Deleted Assessment and plan: DVT prophylaxis: ?Status:?Acute ? ? ? Assessment and plan: Patient is not a candidate for pharmacological DVT prophylaxis at this time We will continue SCD's (4) Macrocytic anemia: Status: Acute Assessment and plan: B12 is a acute phase reactant and levels might have to be adjusted in the setting of inflammation. This patient's Fe level is low and B12 supplementation as well as iron supplementation seems warranted MCV 96, Fe 29, TIBC 275, transferrin 11%, ferritin 24, B12 level was 296 Considering iron and vitamin B12 supplementation inpatient and at discharge (5) COPD (chronic obstructive pulmonary disease): Status: Chronic Assessment and plan: Patient is in no acute distress, breath sounds remained diminished and clear to the right lower lobe will continue IS (6) Hypertension: Status: Resolved Assessment and plan: Patient reported past used of lisinopril but has not taken it for years. In the context of hypovolemia due to GI bleed, the choice was made not to initiate treatment for this condition. He had to be fluid resuscitated upon admission. This AM BP 124/73. The patient will be guided to acquire PCP follow-up on this diagnosis as the recommendation are a step-harris approach for the control hypertension. (7) Discharge planning issues: Status: Deleted Assessment and plan: Discharge planning issues: ?Status:?Acute ? ? ? Assessment and plan: Patient is a transfer from [facility] in [facility] Care management will evaluate needs for discharge when patient is medically stable Patient reports not having a PCP but is willing to find a provider: Information printed by care management and given to patient He would also like is discharge drug to be sent to the [facility] in [place], [place] Referral to [facility] upon discharge Discussed with Dr. Crowell Subjective Subjective Interval history since last seen: Patient reports one episode of stool yesterday, no report of tenesmus. He denies having dizziness, abdominal cramping. He reports floaters to left eye that have been presents over the past 2 years but not new visual changes; denies paresthesia chest pain, palpitation,shortness of breath or difficulty breathing,dysphagia, nausea, anorexia, hematochezia, dysuria. Reports voiding yellow clear urine. He states that he wants to find what is going on. Exam Narrative Exam Narrative: Constitutional: Patient is pleasant and cooperative, speaks in full sentences, no distress HEENT: normocephalic, atraumatic, no adenopathy Neuro: Alert and oriented X 4, no focal neurological deficit.Steady gait. Cardiac: S1, S2, no murmur, pulses are positive to all 4 extremities,1+ edema to right lower leg, cap refill to fingers< 3 seconds Resp: Lung are clear, diminished right lower lobe GI: Abdomen is soft, non-tender, non-distended, bowel sounds are present : No CVA tenderness Musk:push pull 5/5 to upper and lower extremities Skin: skin is warm pink and intact Psych: Congruent Objective Last Vital Signs Temp 99.0 F 10/29/22 11:11 Pulse 69 10/29/22 11:11 Resp 17 10/29/22 11:11 BP 124/73 10/29/22 11:11 Pulse Ox 94 10/29/22 11:11 Laboratory Results - last 24 hr 10/28/22 10/29/22 10/29/22 14:10 05:49 05:49 WBC 6.55 RBC 2.97 L Hgb 10.0 L 9.0 L Hct 30.9 L 28.5 L MCV 96 H MCH 30.3 MCHC 31.6 L RDW 12.7 Plt Count 230 MPV 9.4 Immature Gran % 0.3 Neutrophils % 72.4 Lymphocytes % 16.3 Monocytes % 7.5 Eosinophils % 3.2 Basophils % 0.3 Nucleated RBC % 0.0 Absolute Neutrophils 4.74 Absolute Lymphocytes 1.07 L Absolute Monocytes 0.49 Absolute Eosinophils 0.21 Absolute Basophils 0.02 Sodium 142 Potassium 3.8 Chloride 107 Carbon Dioxide 29.7 Anion Gap 5.3 BUN 15 Creatinine 0.8 Est GFR (CKD-EPI 2020) 94.03 Glucose 99 Calcium 8.6 Magnesium 1.9 PAWSS Pt Consumed Any Amount of Alcohol Within the Last 30 days OR had positive ALENA Upon Admission: Yes Have you Been Recently Intoxicated or Drunk Within the Last 30 days?: No Result: 0 Time Spent with Patient Time Spent with Patient: 35-49 minutes Time was spent: preparing to see the patient(eg.review tests) and obtaining and/or reviewing [facility]
[2022-10-29] MEDS: Normal Saline Flush 10 ML SYR IVP (12:35)
[2022-10-29] MEDS: Pantoprazole 40 MG VIAL IVP (12:35)
[2022-10-29 14:01] LABS: HCT 29.3 % (40.0-50.0); HGB 9.5 g/dL (13.5-17.5)
[2022-10-29 15:20] VITALS: BP 124/73; PULSE 69; RESP 17; TEMP 37.1; O2SAT 94
--- NOTE | 2022-10-29 16:06 | W.PM.DS.N ---
Date of service: 10/29/22 Time of Service: 16:06 DS: Diagnosis Discharge Diagnosis (1) Gastrointestinal bleeding: Status: Acute (2) Abnormal CT of the abdomen: Status: Acute (3) Macrocytic anemia: Status: Acute (4) COPD (chronic obstructive pulmonary disease): Status: Chronic (5) Hypertension: Status: Resolved (6) B12 deficiency: Status: Acute (7) Iron deficiency: Status: Acute Discharge Plan Disposition Patient Disposition: Home Condition: Stable Discharge Details Reason For Visit: Lower GI bleed Admit Date/Time: 10/26/22 22:35 Admit Provider: Thiago Bennett Attending Provider: Thiago Bennett Hospital Course Hospital Course: Ms De La Cruz is a 72 year old male with PMHx of HTN, not on medications, as well as h/o OA on naproxen, prophylactic fish oil, aspirin, and garlic supplementation (not prescribed), [facility] initially presenting to [facility] (due to lack of capacity of medical beds at [facility]) with bright red blood per rectum. The patient was hemodynamically stable, and his hemoglobin was 10.6. He did have dizziness on the day of his presentation. His stools, while initially bright red, became black. His CT at [facility] revealed extensive diverticular disease, focal segmental colonic wall thickening in the region of hepatic flexure (a mass could not be excluded) among other routine findings (nonobstructing nephrolithiasis and probable cholelithiasis). General surgery was consulted and felt that based on the hemodynamic stability as well as stability of the patient's H/H, he could be permitted a diet and would benefit from an outpatient colonoscopy as well as an EGD. NSAIDs, aspirin, fish oil were held. We did initiate a PPI. The patient had 1 BM per day. On the day of his discharge, BMs turned brown. H/H remained relatively stable. HE did not require a blood transfusion. His H/H this afternoon was 9.5/29.3. He does have evidence of both iron and B12 deficiencies and was initiated on repletion. He is being referred to [facility] [place] [place] [facility] for outpatient endoscopies. He is medically stable for discharge today. He should follow up with his PCP in 1-2 weeks. Care for patient as well as completion of his discharge summary on day of discharge took 45 minutes. Home Meds and New Rx's Prescriptions: New cyanocobalamin (vitamin B-12) [Vitamin B-12] 500 mcg Tablet 1,000 mcg PO DAILY Qty: 0 0RF ferrous sulfate 325 mg (65 mg iron) tablet,delayed release (DR/EC) 325 mg PO BID Qty: 60 0RF docusate sodium 100 mg capsule 100 mg PO BID Qty: 60 0RF polyethylene glycol 3350 [Miralax] 17 gram/dose powder 17 g PO BID PRN PRNQty: 238 0RF bisacodyl [Dulcolax (bisacodyl)] 5 mg tablet,delayed release (DR/EC) 5 mg PO .q72h prn Qty: 10 0RF pantoprazole [Protonix] 40 mg tablet,delayed release (DR/EC) 40 mg PO DAILY Qty: 30 0RF Continued acetaminophen 500 mg Tablet 1,000 mg PO Q6H PRN selenium 50 mcg Tablet 50 mcg PO DAILY garlic 500 mg Capsule 500 mg PO DAILY cholecalciferol (vitamin D3) [Vitamin D3] 25 mcg (1,000 unit) Capsule 1,000 unit PO DAILY Centrum Silver Ultra Men's 300-600-300 mcg Tablet 1 tab PO DAILY magnesium oxide 400 mg magnesium Tablet 400 mg PO DAILY Discontinued aspirin 325 mg Tablet 325 mg PO DAILY naproxen 250 mg Tablet 250 mg PO Q8H PRN [place] 3 Fish Oil 684-1,200 mg Capsule,Delayed Release(Dr/Ec) 1 cap PO DAILY Discharge Instructions Instructions: Gastrointestinal Bleeding (DC), Iron Deficiency Anemia (GEN), Anemia (DC), Vitamin B12 Deficiency (ED), Pantoprazole (By mouth) Additional Instructions: Return to the hospital with any fever, bleeding, chest pain, or shortness of breath. Follow up with your PCP in 1-2 weeks. Follow up with [facility] [place] [place] [facility]. Stand Alone Forms: Nursing Discharge Form Referrals: GASTROENTEROLOGY,[facility] [place] [place] [OTHER] - (Referral faxed to [facility] [place] [place] 10/29/22) Unknown,Unknown [STAFF PHYSICIAN] - (Please call your primary care on Monday and make an appointment in the next 7-10 days ) Activity:: Activity as Tolerated Equipment/Supplies:: No Equipment Needed Diet:: As Tolerated Discharge Orders Discharge Orders: Discharge Order (Routine); Ordered 10/29/22 Ordered By: Natalie Crowell DS: Summary Time Spent with Patient providing and/or coordinating discharge services: Greater than 30 minutes Status at Discharge Functional status at discharge: independent ambulation Overall status at discharge: patient is back to baseline Mental Status: mental status grossly normal Speech and Movement: speech and movement normal Mood: congruent mood Affect: normal affect Exam Narrative Exam Narrative: General: Pleasant male who is not pale, looks well, sitting in a chair HEENT: EOMI, MMM Cardiovascular: RRR, no m/r/g Lungs: CTAB Gastrointestinal: soft, tender in LLQ Extremities: +1 BLE edema, +1 pedal pulses B, no c/c Psych Mental Status: mental status grossly normal Speech and Movement: speech and movement normal Mood: congruent mood Affect: normal affect DS: Data Vitals/I&O Vitals and I&O: Vital Signs Temperature 37.1 C 10/29/22 15:20 Temperature Source Tympanic 10/29/22 15:20 Pulse 69 10/29/22 15:20 Pulse Rhythm Regular 10/29/22 08:30 Respiratory Rate 17 10/29/22 15:20 Respiratory Effort 10/29/22 08:30 Respiratory Depth Normal 10/29/22 08:30 Respiratory Pattern Normal 10/29/22 08:30 Blood Pressure 124/73 10/29/22 15:20 Pulse Oximetry 94 10/29/22 15:20 Oxygen Delivery Method Room Air 10/29/22 15:20 Oxygen Flow Rate 0 10/29/22 15:20 Pain Level 0 10/29/22 15:20 Intake & Output 10/28/22 10/29/22 10/29/22 23:59 11:59 23:59 Intake Total 470 / 480 Balance 470 / 480 Intake: IV 110 / 120 Oral 360 / 360 Other: Urine Appearance Clear Stool Occult Blood Positive Stool Size Small Stool Characteristics Soft Formed Voiding Methods Toilet Data Completed and Pending Completed studies during hospitalization [Text1]: CT abdomen/pelvis 10/26/22 ([facility]): CT angio Abdomen/pelvis: 1. No evidence of active GI bleeding 2. Extensive diverticulosis w/o evidence of acute diverticulitis. 3. Focal segment of colonic wall thickening in the region of hepatic flexure, cannot exclude a mass. Recommend direct visualization for further evaluation. 4. Bilateral nonobstructing renal calculi. 5. Probable cholelithiasis without evidence of cholecystitis. Labs on day of discharge: Labs from last 24 hours 10/29/22 10/29/22 10/29/22 13:45 05:49 05:49 WBC 6.55 RBC 2.97 L Hgb 9.5 L 9.0 L Hct 29.3 L 28.5 L MCV 96 H MCH 30.3 MCHC 31.6 L RDW 12.7 Plt Count 230 MPV 9.4 Immature Gran % 0.3 Neutrophils % 72.4 Lymphocytes % 16.3 Monocytes % 7.5 Eosinophils % 3.2 Basophils % 0.3 Nucleated RBC % 0.0 Absolute Neutrophils 4.74 Absolute Lymphocytes 1.07 L Absolute Monocytes 0.49 Absolute Eosinophils 0.21 Absolute Basophils 0.02 Sodium 142 Potassium 3.8 Chloride 107 Carbon Dioxide 29.7 Anion Gap 5.3 BUN 15 Creatinine 0.8 Est GFR (CKD-EPI 2020) 94.03 Glucose 99 Calcium 8.6 Magnesium 1.9 PFSH All Active Problems (Updated 10/29/22 @ 17:45 by Natalie Crowell MD) Iron deficiency (Acute) B12 deficiency (Acute) Discharge planning issues (Acute) Abnormal CT of the abdomen (Acute) Discharge planning issues (Acute) DVT prophylaxis (Acute) Macrocytic anemia (Acute) Gastrointestinal bleeding (Acute) COPD (chronic obstructive pulmonary disease) (Chronic) Medical History (Updated 10/29/22 @ 17:45 by Natalie Crowell MD) Broken foot Hypertension Osteomyelitis Requiring I&D/washout Surgical History (Updated 10/27/22 @ 13:47 by Natalie Crowell MD) H/O foot surgery Family History (Updated 10/27/22 @ 13:51 by Natalie Crowell MD) Maternal Grandmother Heart disease Cancer lung Mother Congestive heart failure Maternal Grandfather Stroke Father Cancer prostate Paternal Grandfather Cancer colon Social History (Updated 10/27/22 @ 13:52 by Natalie Crowell MD) Smoking/Tobacco Use Status: Former Tobacco Use Quit Date: 06/02/97 Pack-years: 40 Tobacco: How many years used: 20 Smoking risk assessment performed?: Yes Alcohol Intake: current Alcohol Intake frequency: 0-2 drinks per day Alcohol type: beer and hard liquor Counseling given: Yes Counseling provided: provider counseling Drug use: Never Substance use type: does not use Details: Last Drink about a week and a half ago 10/27/22 CJ Do you feel safe at home: Yes Do you feel safe in your relationship?: Yes Time Spent with Patient Time Spent with Patient: 45-69 minutes Time was spent: preparing to see the patient(eg.review tests), obtaining and/or reviewing separately otained hiistory, ordering medications,tests, procedures, referring, communicating with other health toddler caregiver, indepentently interpreting results, counseling the patient and care coordination
--- NOTE | 2022-10-29 16:51 | PDOC.CMDIS ---
- If Service Date Differs Date of service: 10/29/22 Time of Service: 16:51 LACE Index Scoring Tool - Questions: Length of Stay (in days): 3 Acuity (Admit via E.D.?): No Comorbidities: Chronic Pulmonary Disease E.D. Visits: 1 - Answers: Total Score: 6 Risk of Readmission: Low Risk Care Management Discharge Reason for Hospitalization: Lower GI bleed Discharge Plan: Jose F is discharged home via private vehicle with family. He will follow up with community providers and discharge plan of care as prescribed. Jose F is asked to call his primary care on Monday and make an appointment in the next 7-10 days. No VNA services are ordered. Patient/Family Education Needs: Review discharge instructions, limitations, medications and plan to follow up with community providers. Discuss ask me three and goals of self care.
== END 2022-10-29 17:57 | disposition home or self-care (01) | DRG 379 ==
PROVIDERS: Internal Medicine; Admitting Provider Family Medicine; Visit Provider Family Medicine
DX: K92.1 Melena (principal); K57.30 Diverticulosis of large intestine without perforation or abscess without bleeding; D53.9 Nutritional anemia, unspecified; J44.9 Chronic obstructive pulmonary disease, unspecified; I10 Essential (primary) hypertension; R93.3 Abnormal findings on diagnostic imaging of other parts of digestive tract; E53.8 Deficiency of other specified B group vitamins; E61.1 Iron deficiency; Z87.891 Personal history of nicotine dependence; Z79.82 Long term (current) use of aspirin; Z79.1 Long term (current) use of non-steroidal anti-inflammatories (NSAID)
CPT/HCPCS: 36415; 80048; 85027; 86850; 86900; 86901; 99221; 82607; 82728; 82746; 83540; 83550; 83735; 85014; 85018; 85025; 85610; 99223; 99232; 99239; A0425; A0428; J1756; J3420